=== PATIENT | male | born 1995 | race Caucasian/White ===

== ENCOUNTER 2019-10-18 07:51 | Emergency (ER) | payer BC, OTHER ==
[~2019-10-18] VITALS: Ht 182.9 cm; Wt 98.4 kg
--- NOTE | 2019-10-18 08:04 | NUR ---
began hurting on friday around the time he was installing a door. he thought it was just pain from hitting it but it is getting worse. no swelling.
[2019-10-18] MEDS ORDERED: ONDANSETRON 2MG/ML, 2ML IVPush ONE (08:30)
[2019-10-18] MEDS ORDERED: SODIUM CHLORIDE FLUSH 10ML SYR IVF ONE (08:30)
[2019-10-18] MEDS ORDERED: ONDANSETRON 2MG/ML, 2ML ONE (08:35)
[2019-10-18] MEDS ORDERED: MORPHINE SULFATE 4 MG/ML, 1ML ONE ×2 (08:35→10:12)
[2019-10-18] MEDS: MORPHINE SULFATE 4 MG/ML, 1ML IVPush PRN ×2 (08:38→10:14)
--- NOTE | 2019-10-18 08:39 | NUR ---
PATIENT LEFT FOR ULTRASOUND, MEDICATED.
--- NOTE | 2019-10-18 09:55 | NUR ---
SENT CLEAN CATCH URINE. PATIENT HAD 600 CLEAR YELLOW URINE OUT. HERE. REQUESTING PAIN MEDS. RELAYED TO [facility]
[2019-10-18 10:06] LABS: MICROSCOPIC NOT IND
[2019-10-18 10:10] LABS: CULTURE INDICATED? NO
--- NOTE | 2019-10-18 10:29 | NUR ---
PATIENT STATES PAIN NOW A ZERO. IN BED, RAILS UP
--- NOTE | 2019-10-18 10:43 | NUR ---
PATIENT TO CT SCAN
[2019-10-18 10:52] LABS: BASOPHILS # (AUTO) 0.02 x10^3/uL (0-0.1); BASOPHILS % (AUTO) 1 % (0-1); EOSINOPHILS # (AUTO) 0.06 x10^3/uL (0-0.4); EOSINOPHILS % (AUTO) 1 % (1-7); LYMPHOCYTES % (AUTO) 39 % (22-44); MD NO; MEAN CORPUSCULAR HEMOGLOBIN 31.7 pg (27.5-34.5); MEAN CORPUSCULAR HGB CONC 33.9 g/dL (33.2-36.2); MEAN CORPUSCULAR VOLUME 93.5 fL (81-97); MEAN PLATELET VOLUME 8.9 fL (7.4-10.4); MONOCYTES # (AUTO) 0.28 x10^3/uL (0.2-0.8); MONOCYTES % (AUTO) 7 % (2-9); NEUTROPHILS # (AUTO) 2.19 x10^3/uL (1.8-6.8); NEUTROPHILS % (AUTO) 53 % (42-75); PLATELET COUNT 240 x10^3/uL (130-400); RED BLOOD COUNT 4.85 x10^6/uL (4.38-5.82); RED CELL DISTRIBUTION WIDTH 12.9 % (9.4-14.8)
[2019-10-18] MEDS ORDERED: OMNIPAQUE 350 MG/ML, 100ML BOTTLE ONE (10:58)
[2019-10-18 11:26] VITALS: BP 115/78
== END 2019-10-18 11:29 | disposition home or self-care (01) ==
LOC: ED 08:31
DX: N50.812 Left testicular pain (principal); R10.32 Left lower quadrant pain
CPT/HCPCS: 36415; 74177; 76870; 81003; 85025; 93975; 96374; 96375; 96376; 99285; J2270; J2405; Q9967